=== PATIENT | male | born 1940 | race Caucasian/White ===

== ENCOUNTER 2024-09-05 14:29 | Outpatient (CLI) | payer MEDICARE, SELFPAY ==
--- NOTE | ~2024-09-05 | XR_ITS ---
EXAMINATION: XR chest 2V 09/05/2024 15:12 INDICATION: Weight loss PROCEDURE: 2 view chest COMPARISON: No prior studies for comparison. FINDINGS: The lungs are clear. There are multiple healed right rib fractures. Moderate thoracic spond ylosis. The cardiomediastinal silhouette is within normal limits. There are no pleural effusions. T here is no pneumothorax suspected. IMPRESSION: 1: NO ACUTE CARDIOPULMONARY DISEASE. Reviewed, dictated and finalized at location B. OS AND ORGANS SALESPERSON
== END 2024-09-05 14:30 | disposition home or self-care (01) ==
DX: R63.4 Abnormal weight loss (principal)
CPT/HCPCS: 71046

== ENCOUNTER 2024-09-23 12:58 | Inpatient (IN) | payer MEDICARE, SELFPAY ==
[2024-09-23] VITALS (21 sets, daily range): BP systolic 131–191; BP diastolic 75–95; PULSE 65–93; RESP 14–31; TEMP 36.1–36.4; O2SAT 98–100
--- NOTE | ~2024-09-23 | CT_ITS ---
CTA brain carotid Ordering provider: Renae Diaz PA-C History: . left eye vision changes . Comparison: None. Technique: CT angiogram head was performed following timed intravenous injection of contrast. Thin sl ice axial images and reformatted coronal images were obtained. Three dimensional reformatted images o f the brain were also obtained using a [employer] workstation. Radiation reduction technique utilized.Th e dose-length product was 1168.51 mGy-cm. 100 mL Omnipaque 350 was given IV.4 FINDINGS: --ANTERIOR AND MIDDLE CEREBRAL ARTERIES AND BRANCHES: Normal caliber and contour. --INTERNAL CAROTID ARTERIES: Mild atheromatous disease but no significant stenosis. No occlusion. --BASILAR ARTERY AND BRANCHES: Normal caliber and contour. No atheromatous disease. Dominant right ve rtebral artery. --POSTERIOR CEREBRAL ARTERIES: Normal caliber and contour --POSTERIOR COMMUNICATING ARTERIES: Both are visualized and continues as the posterior cerebral arter ies. --ANEURYSM: None visualized. --BRAIN: Please refer to report of CT head performed the same day. --BONES AND SUPERFICIAL SOFT TISSUES: Please refer to report of CT head performed the same day. --PARANASAL SINUSES AND MASTOIDS: Bilateral ethmoid and maxillary sinus disease. IMPRESSION: No definite occlusion or significant stenosis seen in the anterior and posterior circulation of the b rain. Posterior communicating arteries continue as the posterior cerebral arteries. CTA brain carotid Ordering provider: Renae Diaz PA-C History: . left eye vision changes . Comparison: None. Technique: CT angiogram neck was performed following timed intravenous injection of contrast. Thin sl ice axial images and reformatted coronal images were obtained. Three dimensional reformatted images o f the neck were also obtained using a [employer] workstation.. Automated exposure control and iterative r econstruction technique were employed. The dose-length product was 1168.51 mGy-cm. FINDINGS: RIGHT CERVICAL CAROTID ARTERY: Mild atheromatous disease of the carotid bulb and proximal internal ca rotid artery without significant stenosis. Percent stenosis per NASCET criteria is 20%. No carotid d issection. Otherwise, no significant atheromatous disease or stenosis of the cervical carotid system. LEFT CERVICAL CAROTID ARTERY: Mild atheromatous disease of the carotid bulb and proximal internal car otid artery without significant stenosis. Percent stenosis per NASCET criteria is 0%. No carotid dis section. Otherwise, no significant atheromatous disease or stenosis of the cervical carotid system. VISUALIZED BILATERAL INTRACRANIAL CAROTID ARTERIES: Mild atherosclerotic changes. VERTEBRAL BASILAR SYSTEM: Dominant right vertebral artery. Normal caliber and contour VISUALIZED AORTIC ARCH AND BRANCHING VESSELS: Mild atheromatous disease but no significant stenosis. SOFT TISSUES: Normal. CERVICAL SPINE: Age appropriate degenerative changes. IMPRESSION: CTA neck. Percent stenosis per NASCET criteria is 20% on the right side. Reviewed, dictated and finalized at location A. OTIONAL MARKETING ANALYST IMPRESSION: No definite occlusion or significant stenosis seen in the anterior and posterio r circulation of the brain. Posterior communicating arteries continue as the posterior cerebral arteries. CTA brain carotid Ordering provider: Renae Diaz PA-C History: . left eye vision changes . Comparison: None. Technique: CT angiogram neck was performed following timed intravenous injectio n of contrast. Thin slice axial images and reformatted coronal images were obta ined. Three dimensional reformatted images of the neck were also obtained using a [employer] workstation.. Automated exposure control and iterative reconstruction technique were employed. The dose-length product was 1168.51 mGy-cm. FINDINGS: RIGHT CERVICAL CAROTID ARTERY: Mild atheromatous disease of the carotid bulb an d proximal internal carotid artery without significant stenosis. Percent stenos is per NASCET criteria is 20%. No carotid dissection. Otherwise, no significan t atheromatous disease or stenosis of the cervical carotid system. LEFT CERVICAL CAROTID ARTERY: Mild atheromatous disease of the carotid bulb and proximal internal carotid artery without significant stenosis. Percent stenosi s per NASCET criteria is 0%. No carotid dissection. Otherwise, no significant atheromatous disease or stenosis of the cervical carotid system. VISUALIZED BILATERAL INTRACRANIAL CAROTID ARTERIES: Mild atherosclerotic change s. VERTEBRAL BASILAR SYSTEM: Dominant right vertebral artery. Normal caliber and c ontour VISUALIZED AORTIC ARCH AND BRANCHING VESSELS: Mild atheromatous disease but no significant stenosis. SOFT TISSUES: Normal. CERVICAL SPINE: Age appropriate degenerative changes.
--- NOTE | ~2024-09-23 | MR_ITS ---
MR brain/brain stem wo/w con Ordering provider: Nathan Buckner MD History: 83 years Male with . stroke . Comparison: The Technique: MRI brain was performed with contrast. 19 mL MultiHance was given IV. FINDINGS: BONES: Normal. CRANIOCERVICAL JUNCTION: normal. PITUITARY: Normal. MAJOR INTRACRANIAL VESSELS: Normal flow void. OPTIC NERVES AND CRANIAL NERVES VII AND VIII COMPLEXES: Grossly normal. BRAIN PARENCHYMA AND CSF SPACES: Mild nonspecific T2 white matter hyperintensities are seen in a flavio ateral periventricular and deep white matter distribution which are likely related to chronic ischemi c small vessel disease. Mild diffuse cortical atrophy. The brainstem and cerebellum are normal. No ac [place] or chronic intracranial hemorrhage. No extra axial fluid collections. Diffusion weighted and ADC mapping images reveal recent ischemia in the right occipital lobe. No midline shift or mass effect. N o enhancing lesions seen. PARANASAL SINUSES: Bilateral ethmoid sinus disease. MASTOIDS: Normal SUPERFICIAL/SURROUNDING SOFT TISSUES: Normal. IMPRESSION: 1. 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 2. Deep white matter ischemic changes with brain atrophy. 3. Nonenhancing lesion seen. Tried to reach the hospitalist through the hospitalist office many times at the time of dictation wit h no success. Reviewed, dictated and finalized at location A. TRIC FORK OPERATOR IMPRESSION: 1. 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 2. Deep white matter ischemic changes with brain atrophy. 3. Nonenhancing lesion seen. Tried to reach the hospitalist through the hospitalist office many times at the time of dictation with no success.
--- NOTE | ~2024-09-23 | US_ITS ---
RIGHT LOWER EXTREMITY VENOUS ULTRASOUND Ordering provider: Casandra Cedeno APRN History: . LE edema . Comparison: None. FINDINGS: --COMMON FEMORAL: Patent and free of thrombus. Normal compressibility, phasic flow and augmentation. --PROXIMAL SUPERFICIAL FEMORAL: Patent and free of thrombus. Normal compressibility, phasic flow and augmentation. --DISTAL SUPERFICIAL FEMORAL: Patent and free of thrombus. Normal compressibility, phasic flow and au gmentation. --POPLITEAL: Patent and free of thrombus. Normal compressibility, phasic flow and augmentation. --POSTERIOR TIBIAL: Patent and free of thrombus. Normal compressibility, phasic flow and augmentation . Mixed echogenicity fluid collection the right calf area measuring 5.1 x 1 x 2.7 cm.. Follow-up advise d. IMPRESSION: Negative right lower extremity venous US. No deep vein thrombosis. Fluid collection in the right calf. Follow-up and further evaluation advised. Reviewed, dictated and finalized at location A. T LINE TAILER
--- NOTE | ~2024-09-23 | XR_ITS ---
EXAMINATION: XR chest 2V DATE: 09/23/2024 13:35 INDICATION: Disc herniations and 50 TECHNIQUE: PA and lateral views of the chest were obtained. COMPARISON: Chest radiograph dated 09/05/2024 FINDINGS: Unchanged mild reticular opacities at the lateral right lower lung zone and favor atelectasis/scarrin g over pneumonia. Left lung clear. No pulmonary edema, pleural effusion or pneumothorax. The cardiome diastinal silhouette is normal. Old healed posterior left fifth rib fracture and old healed fractures of the posterior right fifth-10th ribs. IMPRESSION: 1. Unchanged mild atelectasis/scarring at the lateral right lower lung zone. No other acute cardiopul monary disease. Reviewed, dictated and finalized at location B. OMA DENTAL ASSISTANT IMPRESSION: 1. Unchanged mild atelectasis/scarring at the lateral right lower lung zone. No other acute cardiopulmonary disease.
--- NOTE | ~2024-09-23 | CT_ITS ---
EXAMINATION: CT brain wo con DATE: 09/23/2024 13:29 INDICATION: Hallucinations. TECHNIQUE: Computed tomography (CT) of the head was performed without intravenous contrast. The mA wa s adjusted according to patient size. Iterative reconstruction technique was employed. The dose-lengt h product was 605.33 mGy-cm. COMPARISON: None FINDINGS: There is an old infarct in the left caudate nucleus. There are scattered areas of low atten uation in the cerebral white matter. There are infarcts in the left parietal-occipital region. There is no intracranial hemorrhage or abnormal mass lesion. The ventricles are normal in size. There is mi ld mucosal thickening in the paranasal sinuses. There are likely changes of ocular lens replacement s urgeries. The mastoid air cells are normal. IMPRESSION: 1. Age-indeterminate infarcts in the left parietal-occipital region. 2. 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 3. Moderate nonspecific cerebral white matter disease, which likely represents chronic small vessel i schemic disease. Reviewed, dictated and finalized at location A. CTOR OF TECHNOLOGY IMPRESSION: 1. Age-indeterminate infarcts in the left parietal-occipital region. 2. 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 3. Moderate nonspecific cerebral white matter disease, which likely represents chronic small vessel ischemic disease.
--- NOTE | 2024-09-23 13:19 | ECG_ITS ---
Test Date: 2024-09-23 14:01:31 Measurements Intervals [place] Rate: 63 P: 99 ME: 233 QRS: 9 QRSD: 83 T: 30 QT: 374 QTc: 384 Interpretive Statements SINUS RHYTHM WITH SINUS ARRHYTHMIA WITH FIRST DEGREE AV BLOCK NONSPECIFIC T-WAVE ABNORMALITY No previous ECG available for comparison Electronically Signed On 09-26-2024 15:05:57 MEDICAL SOCIOLOGIST by Baldo Becker M.D.
--- NOTE | 2024-09-23 13:20 | ED_ITS ---
HPI - Eye Problem General Chief complaint: Eye Problems <Renae Diaz PA-C - Last Filed: 09/23/24 13:22> Stated complaint: vision changes in L. eye, LKW Thursday <Renae Diaz PA-C - Last Filed: 09/23/24 13:22> Time Seen by Provider: 09/23/24 20:28 <Renae Diaz PA-C - Last Filed: 09/23/24 13:22> Focused HPI: 83-year-old male with history of rheumatoid arthritis on Plaquenil presents to the emergency department for vision changes and hallucinations to the left eye. Patient states Tuesday 09/18 he was watching a football game we began developing polanco spots in his vision on the left eye. States this episode lasted approximately 1 hour hi. He later began developing a headache. He was asymptomatic for a couple days until Thursday he started having visual hallucinations of the left eye. States out of the periphery of his left eye he would see people, numbers, adult, children, streamers, balloons, a person in his bedroom with cooler, etc.. He states every time he would turn his head these people or things would not be there. He states this is never happened to him before. Denies double vision, loss of vision, sensation of a curtain coming down his eye, focal numbness or weakness, chest pain or shortness of breath, cough or congestion, dysuria or hematuria, fever. GENERAL: Well-appearing, well-nourished, and in no acute distress. HEAD: Normocephalic, atraumatic. CHEST: Clear to auscultation. ?No respiratory distress. HEART: Regular rate and rhythm.? NEURO: ?Alert and oriented x3. Patient screened in triage and initial orders placed.? ?Additional care and disposition to be based upon?diagnostic testing and treatment. <Renae Diaz PA-C - Last Filed: 09/23/24 13:22> History of Present Illness HPI Narrative: Patient 83-year-old gentleman presents emergency department with chief complaint of visual disturbances the left eye. The patient reports that on Thursday he had a headache and started developing a polanco spot of visual loss the center of his visual field patient states that it has improved reports that he is seeing flashes in his eye worse whenever he touches the eye. The patient reports having no pain currently reports that he has had no nausea no vomiting reports that he has weakness in the arms or legs denies double vision < Nathan Buckner MD - Last Filed: 09/23/24 22:06> Related Data Allergies/adverse reactions: Allergies Allergy/AdvReac Type Severity Reaction Status Date / Time simvastatin (From Zocor) Allergy Swelling Verified 09/23/24 13:02 of Lip/Tongue/Throat <Renae Diaz PA-C - Last Filed: 09/23/24 13:22> Review of Systems 2 Review of Systems: A 10 system review of systems was completed on the patient and is negative except for what is stated in the HPI. Nursing and ancillary documentation was reviewed. <Nathan Buckner MD - Last Filed: 09/23/24 22:06> PMFSH Comments Rheumatoid arthritis <Nathan Buckner MD - Last Filed: 09/23/24 22:06> Exam 2 Narrative: GENERAL: Well-appearing, well-nourished, and in no acute distress. HEAD: Normocephalic, atraumatic. EYES: PERRLA and EOMI. Intra-ocular pressure 17, bedside ultrasound showed no flap ENT: Nares clear, no rhinorrhea or epistaxis. Mucous membranes moist. NECK: Supple. CHEST: Clear to auscultation. No respiratory distress. HEART: Regular rate and rhythm. No murmur heard. Normal peripheral pulses. ABDOMEN: Soft, nontender, nondistended, normal active bowel sounds. EXTREMITIES: Normal range of motion. No edema. SKIN: Warm, dry, no rash. NEURO: No focal deficits. Alert and oriented x3. PSYCH: Normal mood and affect. <Nathan Buckner MD - Last Filed: 09/23/24 22:06> Course Vital Signs Vital signs: Vital Signs Temperature 36.3 C L 09/23/24 13:12 Pulse Rate 71 09/23/24 13:12 Respiratory Rate 20 09/23/24 13:12 Blood Pressure 171/95 H 09/23/24 13:12 Pulse Oximetry 100 09/23/24 13:12 Oxygen Delivery Room Air 09/23/24 13:12 Temperature 36.1 C L 09/23/24 19:25 Pulse Rate 74 09/23/24 19:25 Respiratory Rate 16 09/23/24 19:25 Blood Pressure 172/87 H 09/23/24 19:25 Pulse Oximetry 100 09/23/24 19:25 Oxygen Delivery Room Air 09/23/24 13:12 <Renae Diaz PA-C - Last Filed: 09/23/24 13:22> Vital Signs Temperature 36.3 C L 09/23/24 13:12 Pulse Rate 71 09/23/24 13:12 Respiratory Rate 20 09/23/24 13:12 Blood Pressure 171/95 H 09/23/24 13:12 Pulse Oximetry 100 09/23/24 13:12 Oxygen Delivery Room Air 09/23/24 13:12 Temperature 36.1 C L 09/23/24 19:25 Pulse Rate 74 09/23/24 19:25 Respiratory Rate 16 09/23/24 19:25 Blood Pressure 172/87 H 09/23/24 19:25 Pulse Oximetry 100 09/23/24 19:25 Oxygen Delivery Room Air 09/23/24 13:12 <Nathan Buckner MD - Last Filed: 09/23/24 22:06> MDM - Eye Problem Lab Data Result diagrams: 09/23/24 14:11 09/23/24 14:11 <Renae Diaz PA-C - Last Filed: 09/23/24 13:22> Labs: Lab Results 09/23/24 Range/Units 14:11 WBC 4.4 L (4.5-10.0) K/mm3 RBC 4.05 L (4.6-6.20) M/mm3 Hgb 13.7 L (14.0-18.0) g/dL Hct 39.8 L (42.0-52.0) % MCV 98.3 (80-100) fl MCH 33.8 (26-34) pg MCHC 34.4 (32-36) g/dl RDW 12.7 (11.5-14.5) % Plt Count 154 (150-375) k/mm3 MPV 10.1 (7.4-10.4) fl Immature Gran % (Auto) 0.2 (0-0.5) % Neut % (Auto) 56.8 (45.5-73.1) % Lymph % (Auto) 27.1 (18.3-44.2) % [place] % (Auto) 8.4 (2.6-8.5) % Eos % (Auto) 6.8 H (0-4.4) % Baso % (Auto) 0.7 (0.2-1.2) % Lymph # (Auto) 1.20 (0.9-3.2) K/mm3 [place] # (Auto) 0.4 (0.1-0.6) K/mm3 Eos # (Auto) 0.3 (0-0.3) K/mm3 Baso # (Auto) 0.0 (0.0-0.1) K/mm3 Abs Immat Gran (auto) 0.01 (0.00-0.031) K/mm3 Absolute Neuts (auto) 2.5 (1.3-6.7) K/mm3 Absolute Nucleated RBC 0.000 (0.0-0.012) K/mm3 Nucleated RBC % 0.0 (0.0-0.2) % PT 14.0 (11.1-14.7) Seconds INR 1.0 APTT 24.6 (22.3-36.8) Seconds Sodium 135 L (137-145) mmol/L Potassium 4.5 (3.4-5.0) mmol/L Chloride 101 (98-107) mmol/L Carbon Dioxide 31 H (22-30) mmol/L Anion Gap 3 L (4-12) mmol/L BUN 7 L (9-20) mg/dL Creatinine 0.60 L (0.7-1.3) mg/dL Estim Creat Clear Calc 89 ml/min Estimated GFR > 60 (59 - ) Glucose 104 (65-110) mg/dL Calcium 9.5 (8.4-10.2) mg/dL Total Bilirubin 0.7 (0.2-1.3) mg/dL AST 24 (17-59) U/L ALT 10 (6-50) U/L Alkaline Phosphatase 63 (38-126) U/L Troponin I 0.034 (0.000-0.034) ng/mL Total Protein 8.0 (6.3-8.2) g/dL Albumin 4.5 (3.5-5.1) g/dL Urine Color Yellow (Yellow) Urine Appearance Clear (Clear) Urine pH 6.5 (5.0-9.0) Ur Specific [place] 1.008 (1.001-1.035) Urine Protein Negative (Negative) mg/dL Urine Glucose (UA) Negative (Negative) mg/dL Urine Ketones Negative (Negative) mg/dL Ur Blood (Man) Negative (Negative) Urine Nitrate Negative (Negative) Urine Bilirubin Negative (Negative) Urine Urobilinogen 0.2 (<2.0) mg/dL Leukocyte Esterase Rfl Negative (Negative) MONI/UL <Renae Diaz PA-C - Last Filed: 09/23/24 13:22> Lab Results 09/23/24 Range/Units 14:11 WBC 4.4 L (4.5-10.0) K/mm3 RBC 4.05 L (4.6-6.20) M/mm3 Hgb 13.7 L (14.0-18.0) g/dL Hct 39.8 L (42.0-52.0) % MCV 98.3 (80-100) fl MCH 33.8 (26-34) pg MCHC 34.4 (32-36) g/dl RDW 12.7 (11.5-14.5) % Plt Count 154 (150-375) k/mm3 MPV 10.1 (7.4-10.4) fl Immature Gran % (Auto) 0.2 (0-0.5) % Neut % (Auto) 56.8 (45.5-73.1) % Lymph % (Auto) 27.1 (18.3-44.2) % [place] % (Auto) 8.4 (2.6-8.5) % Eos % (Auto) 6.8 H (0-4.4) % Baso % (Auto) 0.7 (0.2-1.2) % Lymph # (Auto) 1.20 (0.9-3.2) K/mm3 [place] # (Auto) 0.4 (0.1-0.6) K/mm3 Eos # (Auto) 0.3 (0-0.3) K/mm3 Baso # (Auto) 0.0 (0.0-0.1) K/mm3 Abs Immat Gran (auto) 0.01 (0.00-0.031) K/mm3 Absolute Neuts (auto) 2.5 (1.3-6.7) K/mm3 Absolute Nucleated RBC 0.000 (0.0-0.012) K/mm3 Nucleated RBC % 0.0 (0.0-0.2) % PT 14.0 (11.1-14.7) Seconds INR 1.0 APTT 24.6 (22.3-36.8) Seconds Sodium 135 L (137-145) mmol/L Potassium 4.5 (3.4-5.0) mmol/L Chloride 101 (98-107) mmol/L Carbon Dioxide 31 H (22-30) mmol/L Anion Gap 3 L (4-12) mmol/L BUN 7 L (9-20) mg/dL Creatinine 0.60 L (0.7-1.3) mg/dL Estim Creat Clear Calc 89 ml/min Estimated GFR > 60 (59 - ) Glucose 104 (65-110) mg/dL Calcium 9.5 (8.4-10.2) mg/dL Total Bilirubin 0.7 (0.2-1.3) mg/dL AST 24 (17-59) U/L ALT 10 (6-50) U/L Alkaline Phosphatase 63 (38-126) U/L Troponin I 0.034 (0.000-0.034) ng/mL Total Protein 8.0 (6.3-8.2) g/dL Albumin 4.5 (3.5-5.1) g/dL Urine Color Yellow (Yellow) Urine Appearance Clear (Clear) Urine pH 6.5 (5.0-9.0) Ur Specific [place] 1.008 (1.001-1.035) Urine Protein Negative (Negative) mg/dL Urine Glucose (UA) Negative (Negative) mg/dL Urine Ketones Negative (Negative) mg/dL Ur Blood (Man) Negative (Negative) Urine Nitrate Negative (Negative) Urine Bilirubin Negative (Negative) Urine Urobilinogen 0.2 (<2.0) mg/dL Leukocyte Esterase Rfl Negative (Negative) MONI/UL <Nathan Buckner MD - Last Filed: 09/23/24 22:06> Discharge Plan Discharge Patient Language: Mexican <Renae Diaz PA-C - Last Filed: 09/23/24 13:22> Follow-up/Referrals: PHYSICIAN,WORKERS' COMPENSATION COMMISSIONER [Non-Staff] - <Renae Diaz PA-C - Last Filed: 09/23/24 13:22>
[2024-09-23 14:43] LABS: Basophils Percent Auto 0.7 % (0.2-1.2); Eosinophils Absolute Auto 0.3 K/mm3 (0-0.3); Eosinophils Percent Auto 6.8 % (0-4.4); Hematocrit 39.8 % (42.0-52.0); Hemoglobin 13.7 g/dL (14.0-18.0); Immature Granulocyte Absolute 0.01 K/mm3 (0.00-0.031); Immature Granulocyte Percent A 0.2 % (0-0.5); Lymphocytes Percent Auto 27.1 % (18.3-44.2); Mean Corpuscular HGB Conc 34.4 g/dl (32-36); Mean Corpuscular Hemoglobin 33.8 pg (26-34); Mean Corpuscular Volume 98.3 fl (80-100); Mean Platelet Volume 10.1 fl (7.4-10.4); Monocytes Absolute Auto 0.4 K/mm3 (0.1-0.6); Monocytes Percent Auto 8.4 % (2.6-8.5); Neutrophils Absolute Auto 2.5 K/mm3 (1.3-6.7); Neutrophils Percent Auto 56.8 % (45.5-73.1); Platelet Count Result 154 k/mm3 (150-375); Red Blood Count 4.05 M/mm3 (4.6-6.20); Red Cell Distribution Width 12.7 % (11.5-14.5); White Blood Count 4.4 K/mm3 (4.5-10.0)
[2024-09-23 14:49] LABS: Alanine Aminotransferase 10 U/L (6-50); Albumin Level 4.5 g/dL (3.5-5.1); Alkaline Phosphatase 63 U/L (38-126); Anion Gap 3 mmol/L (4-12); Aspartate Amino Transferase 24 U/L (17-59); Bilirubin,Total 0.7 mg/dL (0.2-1.3); Blood Urea Nitrogen 7 mg/dL (9-20); Calcium 9.5 mg/dL (8.4-10.2); Carbon Dioxide 31 mmol/L (22-30); Chloride 101 mmol/L (98-107); Estimated CRCL calculation 89 ml/min; Estimated Glomerular Filt Rate > 60; Glucose 104 mg/dL (65-110); Potassium 4.5 mmol/L (3.4-5.0); Sodium 135 mmol/L (137-145)
[2024-09-23 14:53] LABS: Add Urine Microscopic? NO; Appearance Urine Clear (Clear); Bilirubin Urine Negative (Negative); Blood Urine Negative (Negative); Color Urine Yellow (Yellow); Glucose Urine UA Negative (Negative); Ketones Urine Negative (Negative); Leukocyte Esterase Ur Negative LEU/UL (Negative); Nitrate Urine Negative (Negative); Protein Urine Negative (Negative); Specific Grav Ur 1.008 (1.001-1.035); Urobilinogen Urine 0.2 mg/dL (<2.0); pH Urine 6.5 (5.0-9.0)
[2024-09-23 14:54] LABS: Partial Thromboplastin Time 24.6 Seconds (22.3-36.8)
[2024-09-23 15:01] LABS: Troponin I 0.034 ng/mL (0.000-0.034)
--- NOTE | 2024-09-23 23:59 | ADMGEN ---
This patient, Lito Shetty, was admitted to 2 Medical Room 259-01. Patient/family oriented to hospital policies and general routines including ID bracelet, bed and alarms, visiting hours, pain management, procedures, bathroom and other care routines, personal items, smoking policy, room service/diet, and visiting hours. Information on how to activate the Rapid Response Team has been discussed. Patient/Family are encouraged to report perceived risks to care and to ask questions if they do not understand what they are told or what they should do.
[2024-09-24] VITALS (8 sets, daily range): BP systolic 128–166; BP diastolic 67–75; PULSE 66–92; RESP 16–20; TEMP 36.2–36.4; O2SAT 96–100; BMI 30.2
--- NOTE | 2024-09-24 | ECHO_ITS ---
Patient Info Name: Lito Shetty Age: 83 years : 1940 Gender: Male Ht: 69 in Wt: 205 lbs BSA: 2.15 m2 HR: 74 bpm BP: 156 / 69 mmHg Technical Quality: Good Exam Date: 09/24/2024 12:32 PM Exam Location: Echo Lab Exam Room: [facility] Patient Status: Inpatient Admit Date: 09/23/2024 Staff Ordering Physician: Casandra Cedeno APRN Pulp Mill Operator: Lucy Arce RDCS Attending Provider: Casandra Cedeno APRN Referring Physician: Oziel CEDENO Exam Type: CA echo doppler w bubble study Study Info Complete two-dimensional, color flow and Doppler transthoracic echocardiogram is performed with agitated saline. Summary 1. Left ventricular chamber dimension is normal. 2. Left ventricular systolic function is normal, estimated at 55-60%. 3. There is no increased left ventricular wall thickness. 4. Left ventricular wall motion is normal. 5. The left ventricular diastolic function is grade I diastolic dysfunction. 6. Right ventricular chamber dimension is normal. 7. Right ventricular systolic function is normal. 8. No PFO seen on bubble study. However bubble study is suboptimal. Left Ventricle Left ventricular chamber dimension is normal. Left ventricular systolic function is normal, estimated at 55-60%. There is no increased left ventricular wall thickness. Left ventricular wall motion is normal. The left ventricular diastolic function is grade I diastolic dysfunction. Right Ventricle Right ventricular chamber dimension is normal. Right ventricular systolic function is normal. Left Atria Left atrial chamber dimension is normal. Right Atria Right atrial chamber dimension is normal. Atrial Septum No PFO seen on bubble study. However bubble study is suboptimal. Aortic Valve The aortic valve is trileaflet. There is no aortic valve sclerosis. There is no aortic valve stenosis. There is no aortic valve regurgitation. Pulmonic Valve The pulmonic valve is normal. There is no pulmonic valve stenosis. There is no pulmonic regurgitation. Mitral Valve The mitral valve has normal leaflets. There is no mitral valve stenosis. There is no mitral valve regurgitation. Tricuspid Valve The tricuspid valve leaflets are normal. There is no significant tricuspid valve stenosis. There is no tricuspid valve regurgitation. Pericardium/Pleural The pericardium appears normal. There is no pericardial effusion. Inferior Vena Cava Normal inferior vena cava with >50% collapse upon inspiration consistent with normal right atrial pressure, 3 mmHg. Aorta The aortic root size at the sinus of Valsalva is dilated. The prox ascending aorta size is normal. Left Ventricular Outflow Tract Name Value Normal LVOT 2D LVOT Diameter 2.1 cm LVOT Doppler LVOT Peak Gradient 5 mmHg LVOT Mean Gradient 3 mmHg LVOT VTI 22 cm LVOT VTI/AV VTI Ratio 1.0 LVOT Stroke Volume 78 ml LVOT CO 17.1 l/min LVOT CI 7.9 l/min/m2 Pulmonic Valve Name Value Normal PV Doppler PV Peak Gradient 3 mmHg Mitral Valve Name Value Normal MV Doppler MV Peak Gradient 3 mmHg MV Mean Gradient 1 mmHg MV Decel Rich 322 cm/s2 MV PHT 69 ms MV Area (PHT) 3.2 cm2 4.0-5.0 MV Area (Cont Eq VTI) 3.2 cm2 MV Regurgitation Doppler MR Peak Gradient 33 mmHg MV Diastolic Function MV E Peak Velocity 76 cm/s MV A Peak Velocity 93 cm/s MV E/A 0.8 MV Decel Time 238 ms MV Annular TDI MV E/e' (Septal) 12.0 <=8.0 MV E/e' (Lateral) 11.0 <=8.0 MV E/e' (Average) 11.5 Tricuspid Valve Name Value Normal Estimated PAP/RSVP RA Pressure 3 mmHg <=5 Aortic Valve Name Value Normal AV Doppler AV Peak Velocity 114 cm/s AV Peak Gradient 5 mmHg AV Mean Gradient 3 mmHg AV VTI 22 cm AV Area (Cont Eq VTI) 3.5 cm2 >=3.0 AV Area (Cont Eq James) 3.5 cm2 AV Regurgitation 2D LVOT Area 3.6 cm2 Ventricles Name Value Normal LV Dimensions 2D/MM IVS Diastolic Thickness (2D) 0.8 cm 0.6-1.0 LVID Diastole (2D) 5.4 cm 4.2-5.8 LVIW Diastolic Thickness (2D) 0.9 cm 0.6-1.0 LVID Systole (2D) 3.8 cm 2.5-4.0 LVOT Diameter 2.1 cm LV Mass (2D Cubed) 176.41 g 88.00-224.00 LV Mass Index (2D Cubed) 82 g/m2 49-115 Relative Wall Thickness (2D) 0.35 LV Fractional Shortening/Ejection Fraction 2D/MM LV Fractional Shortening (2D) 31 % 25-43 LV EF (2D Teicholz) 58 % 52-72 LV Diastolic Volume (4C MOD) 157 ml LV EF (4C MOD) 62 % LV Diastolic Length (4C) 8.4 cm LV Systolic Length (4C) 6.7 cm LV Stroke Volume (4C MOD) 98 ml Atria Name Value Normal LA Dimensions LA Volume (4C A-L) 65 ml RA Dimensions Area (4C) 16.1 cm2 <=18.0 Report Signatures
[2024-09-24] MEDS: oxyCODONE/ACETAMINOPHEN (*CRX) 10-325 MG TABLET 1 TAB PO ×2 (01:38→09:22)
[2024-09-24] MEDS: LEVOTHYROXINE SODIUM 100 MCG TABLET PO (05:57)
--- NOTE | 2024-09-24 07:51 | P.HP_ITS ---
H&P: HPI History of Present Illness Date/Time: 09/24/24 07:51 Chief Complaint: Vision changes Narrative: Lito Shetty is an 83 year old hx RA on plaquenil, remote hx throat cancer, recent right knee replacement in July, former smoker, who was admitted for vision changes and hallucinations to his left eye. He denies tactile or auditory hallucinations and his symptoms would disappear when he covered his left eye. He and his moved here from [place] recently, and he says they are still unpacking. Tuesday 09/18 he was watching a football game and developed spots in his vision and a headache. He has noticed his blood pressure was more elevated than usual this week. He previously took medications for hypertension but his PCP stopped them years ago since his blood pressure was controlled after some weight loss. A couple of days later he noticed visual hallucinations in his left eye only. During the episodes the colors were very vivid. He has seen streamers, plants, trees, different people (human figures but they are not recognizable generally. He saw a boy leaning on his shoulder, a girl with an umbrella, and a couple with a cooler sitting on the ground). He saw a aviles with vivid blue green colors. Covering his eye would cause the hallucinations to disappear and he did not see them with his right eye. He denies auditory or tactile hallucinations. He has never had a episode like this before. Vision is his left eye is more blurred than his right eye. Usually they are normal. No double vision or loss of vision. No focal numbness or weakness. He presented to the ER for his symptoms. He also has right leg swelling, has been gradually decreasing since his knee replacement surgery in July and no increase in swelling since traveling recently. Rheumatoid arthritis was diagnosed based on labs but he had no specific symptoms from it prior to diagnosis, though has he chronic joint pain and multiple knee surgeries, a left shoulder surgery, and an injury to his left hand previously. 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 He expression concern about his being home alone. In the ER, blood pressure above goal. Chest x-ray showed unchanged mild atelectasis/scarring at the lateral right lower lung zone. No other acute cardiopulmonary disease. Labs overall unrevealing, slightly low WBC 4.4 & H&H 13.7/39.8. UA negative. 09/[address] showed 1. Age-indeterminate infarcts in the left parietal-occipital region. 2. 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 3. Moderate nonspecific cerebral white matter disease, which likely represents chronic small vessel ischemic disease. 09/23 CTA showed mild atherosclerotic changes CTA neck. Percent stenosis per NASCET criteria is 20% on the right side. Patient reported no prior strokes that he was aware of but has been taking 162mg of aspirin daily for years per recommendations of his PCP. COUNT INCLUDES THE [facility] Past Medical History Medical History (Updated 09/24/24 @ 10:23 by Casandra Cedeno APRN) Former smoker, stopped smoking in distant past HTN (hypertension) History of throat cancer Surgical History Surgical History (Updated 09/24/24 @ 10:29 by Casandra Cedeno APRN) History of hand surgery Total knee replacement status Family History Family History Mother Cerebrovascular accident Father Cancer Social History Social History Smoking status: Former smoker Tobacco type: cigarettes Alcohol intake: current Drinks per week: 1 Substance use: never Substance use type: does not use Do You Feel Safe in your Home?: Yes Lack of Transportation: No Lack of Food: Never True Current Housing: I Have Housing Concerned About Future Housing: No Difficulty Paying Gas/Electric Bills: No Difficulty Paying for Meds: No Currently Unemployed: No Education: Master's Degree or Higher Difficulty w/ Childcare or Family Care: No Spiritual care concerns: No Meds Home Medications and Allergies Home Medications ?Medication ?Instructions ?Recorded ?Confirmed ?Type aspirin 81 mg tablet,delayed 81 mg PO DAILY 09/24/24 09/24/24 History release (Adult Aspirin Regimen) cyclobenzaprine 10 mg tablet 10 mg PO BID PRN muscle spasm 09/24/24 09/24/24 History folic acid 1 mg tablet 3 mg PO DAILY 09/24/24 09/24/24 History hydroxychloroquine 200 mg tablet 400 mg PO .COMPLEX 09/24/24 09/24/24 History levothyroxine 100 mcg tablet 100 mcg PO DAILY 09/24/24 09/24/24 History (Synthroid) methotrexate sodium (PF) 25 mg/mL 10 mg subcut WEEKLY 09/24/24 09/24/24 History injection solution oxycodone-acetaminophen 10 mg-325 1 tablet PO Q6H PRN pain (scale 09/24/24 09/24/24 History mg tablet score 7-10) pravastatin 40 mg tablet 40 mg PO DAILY 09/24/24 09/24/24 History tramadol 50 mg tablet 50 mg PO DAILY PRN pain 09/24/24 09/24/24 History Allergies Allergy/AdvReac Type Severity Reaction Status Date / Time simvastatin (From Zocor) Allergy Swelling Verified 09/23/24 13:02 of Lip/Tongue/Throat Vital Signs Vital Signs - 24 hr 09/23/24 13:12 09/23/24 15:06 09/23/24 19:25 Temperature 97.4 F L 97.6 F 97 F L Pulse Rate 71 65 74 Respiratory Rate 20 16 Blood Pressure 171/95 H 131/76 172/87 H Pulse Oximetry 100 99 100 Oxygen Delivery Room Air 09/23/24 20:08 09/23/24 20:15 09/23/24 20:22 Temperature Pulse Rate 70 70 70 Respiratory Rate 20 21 H 14 Blood Pressure 159/86 H Pulse Oximetry 98 98 100 Oxygen Delivery 09/23/24 20:30 09/23/24 20:32 09/23/24 20:45 Temperature Pulse Rate 68 81 75 Respiratory Rate 20 14 20 Blood Pressure 163/77 H Pulse Oximetry 98 98 100 Oxygen Delivery 09/23/24 20:47 09/23/24 21:00 09/23/24 21:02 Temperature Pulse Rate 76 68 70 Respiratory Rate 15 25 H 14 Blood Pressure 191/84 H 169/88 H Pulse Oximetry 100 98 99 Oxygen Delivery 09/23/24 21:15 09/23/24 21:17 09/23/24 21:44 Temperature Pulse Rate 66 67 71 Respiratory Rate 20 22 H 29 H Blood Pressure 166/75 H Pulse Oximetry 99 98 99 Oxygen Delivery 09/23/24 22:04 09/23/24 22:33 09/23/24 22:58 Temperature Pulse Rate 81 87 79 Respiratory Rate 18 24 H 20 Blood Pressure Pulse Oximetry Oxygen Delivery 09/23/24 23:02 09/23/24 23:27 09/23/24 23:30 Temperature Pulse Rate 93 82 81 Respiratory Rate 31 H 18 20 Blood Pressure Pulse Oximetry 99 99 Oxygen Delivery 09/24/24 00:09 09/24/24 00:16 09/24/24 00:19 Temperature 97.5 F L Pulse Rate 81 92 82 Respiratory Rate 20 16 Blood Pressure 166/75 H 145/68 H Pulse Oximetry 99 96 Oxygen Delivery 09/24/24 05:50 Temperature 97.6 F Pulse Rate 74 Respiratory Rate 20 Blood Pressure 156/69 H Pulse Oximetry 98 Oxygen Delivery Exam Narrative: General - Awake and alert. No acute distress Eyes - PERRLA, EOM intact ENT - No thrush, No erythema Neck - No noticeable or palpable swelling Lymph Nodes - No lymphadenopathy Cardiovascular - RRR no m/r/g, no JVD Lungs: Clear to auscultation, No wheezing, use of accessory muscles, rare crackles Skin - Skin warm and dry, no wounds or rashes Abdomen - Normal bowel sounds, abdomen soft and nontender Extremities - Right LE edema, no cyanosis or clubbing Musculoskeletal - 5/5 strength, normal range of motion, no swollen or erythematous joints. Neurological ? Alert and oriented x 3, CN 2-12 grossly intact. Psych: Normal mood and affect H&P: Results Labs Labs: Short CBC 09/23/24 Range/Units 14:11 WBC 4.4 L (4.5-10.0) K/mm3 Hgb 13.7 L (14.0-18.0) g/dL Hct 39.8 L (42.0-52.0) % Plt Count 154 (150-375) k/mm3 BMP 09/23/24 14:11 Sodium 135 L Potassium 4.5 Chloride 101 Carbon Dioxide 31 H BUN 7 L Creatinine 0.60 L Glucose 104 Calcium 9.5 Cardiac Enzymes 09/23/24 Range/Units 14:11 Troponin I 0.034 (0.000-0.034) ng/mL Liver Function 09/23/24 Range/Units 14:11 Total Bilirubin 0.7 (0.2-1.3) mg/dL AST 24 (17-59) U/L ALT 10 (6-50) U/L Alkaline Phosphatase 63 (38-126) U/L Albumin 4.5 (3.5-5.1) g/dL Urine 09/23/24 Range/Units 14:11 Urine Color Yellow (Yellow) Urine Appearance Clear (Clear) Urine pH 6.5 (5.0-9.0) Ur Specific [place] 1.008 (1.001-1.035) Urine Protein Negative (Negative) mg/dL Urine Glucose (UA) Negative (Negative) mg/dL Assessment and Plan Assessment and plan (1) Stroke: Code(s): I63.9 - Cerebral infarction, unspecified Status: Acute Assessment and Plan: patient has no known history of stroke but CT showed age-indeterminate infarcts in the parietal-occipital region and an old infarct in the left caudate nucleus. CTA with 20% stenosis right side. Concern for a new stroke causing visual symptoms --MRI pending --Continue asa daily, may need to add plavix --Lovenox for DVT prophylaxis --Echo with bubble study --Monitor on telemetry --Add on lipid profile and hgbA1c --Takes pravastatin 40mg, consider switching to atorvastatin for high intensity therapy. Has an allergy to simvastatin (caused swelling) --Neurology consult (2) Visual hallucination: Code(s): R44.1 - Visual hallucinations Status: Acute Assessment and Plan: Visual hallucinations only in left eye. No fevers or other symptoms concerning for infection. Rheumatoid arthritis seems controlled. Hx throat cancer s/p in remission for 20 years --Treatment of CVA as above --Unlikely psychiatric since no auditory hallucinations --Check UDS, but low suspicion (3) Rheumatoid arthritis: Code(s): M06.9 - Rheumatoid arthritis, unspecified Status: Acute Assessment and Plan: Continue plaquenil (4) HTN (hypertension): Code(s): I10 - Essential (primary) hypertension Status: Inactive Assessment and Plan: Blood pressure above goal, 145-166/68-75 --Monitor off medications Plan 74 minutes Quality VTE Prophylaxis VTE prophylaxis: pharmacologic ordered Hospitalist [facility] Advance Care Plan I have confirmed that the patient's Advanced Care Plan is present, code status is documented, or surrogate decision maker is listed in patient medical record.: Yes Medication Reconciliation I have utilized all available resources to obtain, update and review the patients current medications (includes all prescriptions, OTC, herbals, cannabis, and nutritional supplements).: Yes
[2024-09-24] MEDS: ASPIRIN 81 MG ENTERIC TABLET PO (09:01)
[2024-09-24] MEDS: PRAVASTATIN SODIUM 20 MG TABLET 40 MG PO (09:02)
[2024-09-24] MEDS: FOLIC ACID 1 MG TABLET 3 MG PO (09:02)
[2024-09-24] MEDS: LORazepam INJ (*CRX) 2 MG/ML VIAL 0.5 MG IV PUSH (09:02)
--- NOTE | 2024-09-24 10:09 | WPDNEURCNPN ---
Assessment and Plan Assessment and plan (1) Visual hallucination: Code(s): R44.1 - Visual hallucinations Status: Acute (2) Stroke: Code(s): I63.9 - Cerebral infarction, unspecified Status: Acute Plan 1. Visual hallucination in addition to the history of rheumatoid arthritis, hypertension but negative CTA and abnormal CT with infarct in left parieto-occipital region. MRI is awaited to document the exact configuration of the previous stroke and also incidental pretty of the new stroke. Possibility of the seizure also likely because of focal stroke. Patient definitely wants to go home because he just recently moved here and his is alone because of stones is concerned. Benefit from the continuation of the aspirin 81mg daily, 75mg of Plavix for the next 3 weeks and also an EEG, and echocardiogram. Consult date: 09/24/24 HPI: Lito Shetty is a 83 year old male 83 years old admitted to the hospital through the emergency room for the complaints of visual changes particularly in the left eye and with the explanation that he was watching football game on 09/18 when he started developing polanco spots in his vision on the left eye which lasted for about 1hour and subsequently he developed headache then he was asymptomatic for couple of days up until Thursday when he started having the visual hallucination of the left eye again coming out of the periphery of his left eye and actually he reported that he would see the people numbers adult children history MERS balloons and person in the bedroom with cooler he every time he moved his head People would not be there. Patient has been allergic to simvastatin and on initial exam in the emergency his vital signs were normal except the blood pressure 171/95, also neurological examination was normal, initial evaluation revealed completely normal lab including CBC mast scan. Review of Systems Review of Systems: All systems reviewed & are unremarkable except as noted in HPI and below [facility] Family History Family History Mother Cerebrovascular accident Father Cancer Social History Social History Smoking status: Former smoker Tobacco type: cigarettes Alcohol intake: current Drinks per week: 1 Substance use: never Substance use type: does not use Do You Feel Safe in your Home?: Yes Lack of Transportation: No Lack of Food: Never True Current Housing: I Have Housing Concerned About Future Housing: No Difficulty Paying Gas/Electric Bills: No Difficulty Paying for Meds: No Currently Unemployed: No Education: Master's Degree or Higher Difficulty w/ Childcare or Family Care: No Spiritual care concerns: No Meds Home Medications and Allergies Home Medications ?Medication ?Instructions ?Recorded ?Confirmed ?Type aspirin 81 mg tablet,delayed 81 mg PO DAILY 09/24/24 09/24/24 History release (Adult Aspirin Regimen) cyclobenzaprine 10 mg tablet 10 mg PO BID PRN muscle spasm 09/24/24 09/24/24 History folic acid 1 mg tablet 3 mg PO DAILY 09/24/24 09/24/24 History hydroxychloroquine 200 mg tablet 400 mg PO .COMPLEX 09/24/24 09/24/24 History levothyroxine 100 mcg tablet 100 mcg PO DAILY 09/24/24 09/24/24 History (Synthroid) methotrexate sodium (PF) 25 mg/mL 10 mg subcut WEEKLY 09/24/24 09/24/24 History injection solution oxycodone-acetaminophen 10 mg-325 1 tablet PO Q6H PRN pain (scale 09/24/24 09/24/24 History mg tablet score 7-10) pravastatin 40 mg tablet 40 mg PO DAILY 09/24/24 09/24/24 History tramadol 50 mg tablet 50 mg PO DAILY PRN pain 09/24/24 09/24/24 History Allergies Allergy/AdvReac Type Severity Reaction Status Date / Time simvastatin (From Zocor) Allergy Swelling Verified 09/23/24 13:02 of Lip/Tongue/Throat Vital Signs Vital Signs - 24 hr 09/23/24 13:12 09/23/24 15:06 09/23/24 19:25 Temperature 36.3 C L 36.4 C 36.1 C L Pulse Rate 71 65 74 Respiratory Rate 20 16 Blood Pressure 171/95 H 131/76 172/87 H Pulse Oximetry 100 99 100 Oxygen Delivery Room Air 09/23/24 20:08 09/23/24 20:15 09/23/24 20:22 Temperature Pulse Rate 70 70 70 Respiratory Rate 20 21 H 14 Blood Pressure 159/86 H Pulse Oximetry 98 98 100 Oxygen Delivery 09/23/24 20:30 09/23/24 20:32 09/23/24 20:45 Temperature Pulse Rate 68 81 75 Respiratory Rate 20 14 20 Blood Pressure 163/77 H Pulse Oximetry 98 98 100 Oxygen Delivery 09/23/24 20:47 09/23/24 21:00 09/23/24 21:02 Temperature Pulse Rate 76 68 70 Respiratory Rate 15 25 H 14 Blood Pressure 191/84 H 169/88 H Pulse Oximetry 100 98 99 Oxygen Delivery 09/23/24 21:15 09/23/24 21:17 09/23/24 21:44 Temperature Pulse Rate 66 67 71 Respiratory Rate 20 22 H 29 H Blood Pressure 166/75 H Pulse Oximetry 99 98 99 Oxygen Delivery 09/23/24 22:04 09/23/24 22:33 09/23/24 22:58 Temperature Pulse Rate 81 87 79 Respiratory Rate 18 24 H 20 Blood Pressure Pulse Oximetry Oxygen Delivery 09/23/24 23:02 09/23/24 23:27 09/23/24 23:30 Temperature Pulse Rate 93 82 81 Respiratory Rate 31 H 18 20 Blood Pressure Pulse Oximetry 99 99 Oxygen Delivery 09/24/24 00:09 09/24/24 00:16 09/24/24 00:19 Temperature 36.4 C L Pulse Rate 81 92 82 Respiratory Rate 20 16 Blood Pressure 166/75 H 145/68 H Pulse Oximetry 99 96 Oxygen Delivery 09/24/24 05:50 Temperature 36.4 C Pulse Rate 74 Respiratory Rate 20 Blood Pressure 156/69 H Pulse Oximetry 98 Oxygen Delivery Exam Narrative: Revealed him to be awake alert cooperative in no obvious acute distress, head normocephalic with no bruit, ear nose throat examination normal, neck supple with no bruit, heart regular with no murmur, lungs clear abdomen soft neurologically awake alert oriented x4 with no dysphagia or dysarthria pupils round regular feels the vision full in all 4 quadrants extraocular movements full with no nystagmus facial sensation intact face symmetrical tongue midline uvula midline motor examination revealed him to have no drift of 1 side or other side reflexes symmetrical plantars downgoing. There is no evidence of cerebellar deficit. Results Labs 09/23/24 14:11 09/23/24 14:11 Labs: Short CBC 09/23/24 Range/Units 14:11 WBC 4.4 L (4.5-10.0) K/mm3 Hgb 13.7 L (14.0-18.0) g/dL Hct 39.8 L (42.0-52.0) % Plt Count 154 (150-375) k/mm3 BMP 09/23/24 14:11 Sodium 135 L Potassium 4.5 Chloride 101 Carbon Dioxide 31 H BUN 7 L Creatinine 0.60 L Glucose 104 Calcium 9.5 Cardiac Enzymes 09/23/24 Range/Units 14:11 Troponin I 0.034 (0.000-0.034) ng/mL Liver Function 09/23/24 Range/Units 14:11 Total Bilirubin 0.7 (0.2-1.3) mg/dL AST 24 (17-59) U/L ALT 10 (6-50) U/L Alkaline Phosphatase 63 (38-126) U/L Albumin 4.5 (3.5-5.1) g/dL Urine 09/23/24 Range/Units 14:11 Urine Color Yellow (Yellow) Urine Appearance Clear (Clear) Urine pH 6.5 (5.0-9.0) Ur Specific [place] 1.008 (1.001-1.035) Urine Protein Negative (Negative) mg/dL Urine Glucose (UA) Negative (Negative) mg/dL
[2024-09-24 10:50] LABS: Cholesterol 163 mg/dL (0-200); HDL Direct 72 mg/dL; Triglycerides 100 mg/dL (<150)
[2024-09-24 10:57] LABS: Hemoglobin A1C 5.1 % (<5.7)
[2024-09-24 11:01] LABS: LDL Cholesterol Direct 57 mg/dL
[2024-09-24] MEDS: HYDROXYCHLOROQUINE SULFATE 200 MG TABLET 400 MG PO (12:49)
[2024-09-24] MEDS: CLOPIDOGREL BISULFATE 75 MG TABLET PO (16:54)
--- NOTE | 2024-09-24 19:53 | PM.EVENT ---
Event Note Event Note Event Note: Returned a phone call to radiologist who reports that the patient has an acute infarct in the right occipital lobe on brain MRI. The patient had been discharged approximately 1 hour prior to these results being obtained. I spoke with the hospitalist (Casandra Cedeno NP) who cared for the patient today and she indicated that the patient had been seen by Neurology today and that a stroke was to be an expected finding and that the patient was treated accordingly.
--- NOTE | 2024-09-25 11:55 | P.DS_ITS ---
DS: Admitting Diagnosis Discharge Date 09/24/24 Admitting Diagnosis Stroke Visual Hallucinations DS: Discharge Diagnosis Discharge Diagnosis Plan Acute Stroke Visual Hallucinations DS: Summary Hospital Course Reason for hospitalization: Copied from [facility] 09/24/24 Lito Shetty is an 83 year old hx RA on plaquenil, remote hx throat cancer, recent right knee replacement in July, former smoker, who was admitted for vision changes and hallucinations to his left eye. He denies tactile or auditory hallucinations and his symptoms would disappear when he covered his left eye. He and his moved here from [place] recently, and he says they are still unpacking. Tuesday 09/18 he was watching a football game and developed spots in his vision and a headache. He has noticed his blood pressure was more elevated than usual this week. He previously took medications for hypertension but his PCP stopped them years ago since his blood pressure was controlled after some weight loss. A couple of days later he noticed visual hallucinations in his left eye only. During the episodes the colors were very vivid. He has seen streamers, plants, trees, different people (human figures but they are not recognizable generally. He saw a boy leaning on his shoulder, a girl with an umbrella, and a couple with a cooler sitting on the ground). He saw a aviles with vivid blue green colors. Covering his eye would cause the hallucinations to disappear and he did not see them with his right eye. He denies auditory or tactile hallucinations. He has never had a episode like this before. Vision is his left eye is more blurred than his right eye. Usually they are normal. No double vision or loss of vision. No focal numbness or weakness. He presented to the ER for his symptoms. He also has right leg swelling, has been gradually decreasing since his knee replacement surgery in July and no increase in swelling since traveling recently. Rheumatoid arthritis was diagnosed based on labs but he had no specific symptoms from it prior to diagnosis, though has he chronic joint pain and multiple knee surgeries, a left shoulder surgery, and an injury to his left hand previously. 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 He expression concern about his being home alone. In the ER, blood pressure above goal. Chest x-ray showed unchanged mild atelectasis/scarring at the lateral right lower lung zone. No other acute cardiopulmonary disease. Labs overall unrevealing, slightly low WBC 4.4 & H&H 13.7/39.8. UA negative. 09/[address] showed 1. Age-indeterminate infarcts in the left parietal-occipital region. 2. 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 3. Moderate nonspecific cerebral white matter disease, which likely represents chronic small vessel ischemic disease. 09/23 CTA showed mild atherosclerotic changes CTA neck. Percent stenosis per NASCET criteria is 20% on the right side. Patient reported no prior strokes that he was aware of but has been taking 162mg of aspirin daily for years per recommendations of his PCP. Hospital Course: Acute Stroke Visual symptoms to left visual field changes Status at Discharge Cognitive/behavioral status at discharge: Alert & Oriented x4 Time Spent with Patient Time attestation: Total time spent providing and/or coordinating discharge services: Discharge Plan Discharge Attending physician on discharge: Casandra Cedeno Consulting providers: Martin Anne Discharging Clinician: Casandra Cedeno Anticipated Discharge Date/Time: 09/24/24 17:54 Patient Disposition: Home, Self-Care Activity: may shower Diet: heart healthy Discharge Instructions: Follow up with neurology in 1 month You should follow up with your PCP for an event monitor. You have frequent PVC's (premature beats on your monitor in the hospital). Started metoprolol Continue pravastatin and discuss changing to atorvastatin with your new PCP Started plavix and you should continue for 3 weeks Continue aspirin, likely forever Call 911 if you have signs of a stroke that include weakness on one side, new confusion Recommend stopping tramadol because it can trigger seizures. Take tylenol for pain. Would avoid NSAIDs (ibuprofen and naproxen) with plavix and aspirin Patient Instructions: Antibiotic Form Patient Language: Korean Stand Alone Forms: General Discharge Information Follow-up/Referrals: Martin Anne MD [Physician] - Discharge Medications: New metoprolol succinate 25 mg tablet extended release 24 hr 25 mg PO DAILY Qty: 30 1RF clopidogrel 75 mg tablet 75 mg PO DAILY Qty: 30 0RF Continued cyclobenzaprine 10 mg tablet 10 mg PO BID PRN (Reason: muscle spasm) folic acid 1 mg tablet 3 mg PO DAILY hydroxychloroquine 200 mg tablet 400 mg PO .COMPLEX Rx Instructions: 400 mg orally .montuesthurfrisat; levothyroxine [Synthroid] 100 mcg tablet 100 mcg PO DAILY methotrexate sodium (PF) 25 mg/mL solution 10 mg subcut WEEKLY Rx Instructions: thursday pravastatin 40 mg tablet 40 mg PO DAILY oxycodone-acetaminophen 10-325 mg tablet 1 tablet PO Q6H PRN (Reason: pain (scale score 7-10)) aspirin [Adult Aspirin Regimen] 81 mg tablet,delayed release (DR/EC) 81 mg PO DAILY Discontinued tramadol 50 mg tablet 50 mg PO DAILY PRN (Reason: pain) Date of admission: 09/24/24 17:09 Primary Care Provider: Sushila Chacon Admitting Provider: Lorenza Springer Attending physician on admission: Casandra Cedeno Condition: Stable
== END 2024-09-24 19:20 | disposition home or self-care (01) | DRG 66 ==
LOC: ANHED 20:28 → ANH3MEDSUR 22:41 → ANH2MED 23:27
PROVIDERS: Nurse Practitioner Acute Care; Physician Assistant; Admitting Provider Internal Medicine; Emergency Provider Emergency Medicine; PCP Family Medicine; Visit Provider Internal Medicine
DX: I63.9 Cerebral infarction, unspecified (principal); R44.1 Visual hallucinations; H53.8 Other visual disturbances; R51.9 Headache, unspecified; I10 Essential (primary) hypertension; M06.9 Rheumatoid arthritis, unspecified; Z96.651 Presence of right artificial knee joint; Z87.891 Personal history of nicotine dependence; Z85.89 Personal history of malignant neoplasm of other organs and systems; F40.240 Claustrophobia
CPT/HCPCS: 36415; 70450; 70496; 70498; 70553; 71046; 80053; 80061; 81003; 83036; 84484; 85025; 85610; 85730; 93005; 93306; 93971; 96374; 96375; 99285; A9270; A9577; G0378; J2060; Q9967